=== PATIENT | male | born 1980 | race Caucasian/White ===

== ENCOUNTER 2019-01-30 21:55 | Emergency (ER) | payer MEDICAID ==
--- NOTE | 2019-01-30 22:54 | EDM.PDOC ---
ED HPI GENERAL MEDICAL PROBLEM - General Chief Complaint: Skin Complaint Stated Complaint: RASH Time Seen by Provider: 01/30/19 22:40 Source of Information: Reports: Patient History Limitations: Reports: No Limitations - History of Present Illness INITIAL COMMENTS - FREE TEXT/NARRATIVE: 38-year-old male with several areas of rash on his left arm and back that someone in his family told them were "tick bites" so he wanted him checked out. They're very pruritic, he's been scratching at them and they are scabbing over. Onset: Gradual (Over the last 2-3 days) Location: Reports: Back, Upper Extremity, Left, Other (Left shoulder) - Related Data Allergies Allergy/AdvReac Type Severity Reaction Status Date / Time No Known Allergies Allergy Verified 01/30/19 22:17 Home Meds: Home Meds NK [No Known Home Meds] 01/30/19 [History] Past Medical History Gastrointestinal History: Reports: Cholelithiasis Genitourinary History: Reports: Renal Calculus Musculoskeletal History: Reports: Fracture - Past Surgical History GI Surgical History: Reports: Cholecystectomy Social & Family History - Tobacco Use Packs/Tins Daily: 0.2 - Caffeine Use Caffeine Use: Reports: Energy Drinks, Soda - Recreational Drug Use Recreational Drug Use: No ED ROS GENERAL - Review of Systems Review Of Systems: See Below Constitutional: Denies: Fever, Chills Respiratory: Denies: Shortness of Breath Cardiovascular: Denies: Chest Pain GI/Abdominal: Denies: Abdominal Pain Neurological: Reports: No Symptoms ED EXAM, SKIN/RASH Exam: See Below Exam Limited By: No Limitations General Appearance: Alert, No Apparent Distress Head: Atraumatic Respiratory/Chest: No Respiratory Distress Skin: Other (Patient has a few papular lesions on the posterior left arm, an excoriated lesion on the anterior left arm and an excoriated lesion on the posterior left shoulder. They do not appear to be infected.) Course - Vital Signs Last Recorded V/S: Last Vital Signs Temp 97.9 F 01/30/19 22:19 Pulse 91 01/30/19 22:19 Resp 18 01/30/19 22:19 BP 137/88 01/30/19 22:19 Pulse Ox 95 01/30/19 22:19 - Re-Assessments/Exams Free Text/Narrative Re-Assessment/Exam: 01/30/19 22:52 It appears this patient has some type of bug bite which she is scratching open. It's possible it may be contact dermatitis as well. I recommended some triamcinolone cream but he has no money to get a prescription, so tomorrow they will apply some hydrocortisone cream and use that 3 times a day. He can recheck at the clinic in a few days if not improving. Departure - Departure Time of Disposition: 23:00 Disposition: Home, Self-Care 01 Condition: Good Clinical Impression: Bug bite of face without infection - Discharge Information Instructions: Insect Bite, Adult, [id number] Referrals: PCP,None [Primary Care Provider] - Forms: ED Department Discharge Care Plan Goals: Try hydrocortisone topically 3 times a day to reduce itching, and recheck in 2- 3 days if not improving satisfactorily.
== END 2019-01-30 23:01 | disposition home or self-care (01) ==
LOC: JP.ED 21:55
DX: S40.262A Insect bite (nonvenomous) of left shoulder, initial encounter (principal); S40.862A Insect bite (nonvenomous) of left upper arm, initial encounter; S20.462A Insect bite (nonvenomous) of left back wall of thorax, initial encounter; W57.XXXA Bitten or stung by nonvenomous insect and other nonvenomous arthropods, initial encounter
CPT/HCPCS: 99281; 99282